=== PATIENT | female | born 1985 | race Asian ===

== ENCOUNTER 2018-08-26 05:28 | Inpatient (IN) | payer BC, OTHER, SELFPAY ==
[2018-08-26] MEDS ORDERED: Bicitra 30 ML UDCUP PO SCH (05:58)
[2018-08-26] MEDS ORDERED: CEFAZOLIN 2 GM in Premix Bag 1 BAG IVPB SCH (05:58)
[2018-08-26] MEDS ORDERED: Ondansetron PF 4 MG/2 ML Vial IVP PRN ×3 (05:58→08:42)
[2018-08-26] MEDS ORDERED: Promethazine HCl 25 MG/ML VIAL IM PRN ×2 (05:58→08:38)
[2018-08-26] MEDS ORDERED: Docusate 100 MG CAP PO PRN (05:58)
[2018-08-26 06:16] VITALS: BMI 40.7
[2018-08-26 06:26] LABS: Hemoglobin 12.6 g/dL (12.0-16.0); Mean Corpuscular HGB CONC 33.7 g/dL (32.0-36.0); Mean Corpuscular Hemoglobin 29.7 pg (27.0-31.0); Mean Corpuscular Volume 88.2 fL (78.0-98.0); Mean Platelet Volume 8.9 fL (7.4-10.4); Platelet Count 204 thou/uL (130-400); RBC Distribution Width 15.9 % (11.5-14.5); Red Blood Cell (RBC) Count 4.24 mill/uL (4.20-5.40); White Blood Cell (WBC) Count 5.2 thou/uL (4.8-10.8)
[2018-08-26] MEDS: Lactated Ringer's 1,000 ML IV SCH ×2 (06:28→07:06)
[2018-08-26] MEDS ORDERED: Morphine PF 1 MG/ML SYR ONE (06:53)
[2018-08-26] MEDS ORDERED: PHENYLEPHRINE-NS 100 MCG/ML 10 ML SYRINGE ONE ×2 (06:54→14:30)
[2018-08-26] MEDS ORDERED: Oxytocin 10 UNITS/ML VIAL ONE (06:54)
[2018-08-26] MEDS ORDERED: ePHEDrine/0.9% NaCl/PF SYRINGE 50 mg/10 ml ONE (06:54)
[2018-08-26 07:04] LABS: Syphilis Antibody Nonreactive (Nonreactive); Syphilis Antibody Index 0.02 S/CO (<1.00 Non-Reactive)
[2018-08-26 07:05] LABS: HBSAg Index 0.26 S/CO (0-0.99); Hep B Surf Ag Non-Reactive S/CO (NonReactive)
[2018-08-26] MEDS ORDERED: Ondansetron PF 4 MG/2 ML Vial ONE ×2 (08:09→14:30)
[2018-08-26] MEDS ORDERED: Midazolam HCl 2 mg/2 ml Vial ONE (08:19)
[2018-08-26] MEDS ORDERED: Eucerin (Mineral Oil/Petrolatum,White) 30 gm Jar TOP PRN (08:38)
[2018-08-26] MEDS ORDERED: Ketorolac Tromethamine 30 MG/ML VIAL IVP PRN (08:38)
[2018-08-26] MEDS ORDERED: Promethazine HCl 25 MG SUPP PR PRN (08:38)
[2018-08-26] MEDS ORDERED: diphenhydrAMINE 50 MG/ML VIAL IVP PRN (08:38)
[2018-08-26] MEDS ORDERED: Naloxone HCl 0.4 mg/ml Vial IV PRN (08:38)
[2018-08-26] MEDS ORDERED: Naloxone HCl 0.4 mg/ml Vial IVP PRN (08:38)
[2018-08-26] MEDS ORDERED: Meperidine HCl/PF 25 MG/ML VIAL IM PRN (08:42)
[2018-08-26] MEDS ORDERED: Zolpidem Tartrate 5 MG TAB PO PRN (08:42)
[2018-08-26] MEDS ORDERED: Bisacodyl 10 MG SUPP PR PRN (08:42)
[2018-08-26] MEDS ORDERED: HYDROcodone/Acetaminophen 5/325 mg Tablet PO PRN (08:42)
[2018-08-26] MEDS ORDERED: Acetaminophen 325 MG TAB PO PRN (08:42)
[2018-08-26] MEDS ORDERED: diphenhydrAMINE 25 MG CAP PO PRN (08:42)
[2018-08-26] MEDS ORDERED: Lanolin Ointment 7 GM TUBE TOP PRN (08:42)
[2018-08-26] MEDS ORDERED: Ketorolac Tromethamine 30 MG/ML VIAL ONE ×2 (08:42→14:30)
[2018-08-26] MEDS ORDERED: Adacel (T-DAP) 0.5 ML SYRINGE IM ONE (08:42)
[2018-08-26] MEDS ORDERED: Lactated Ringer's 1,000 ML IV SCH (08:45)
[2018-08-26] MEDS ORDERED: NS / Oxytocin 40 units/1000ml 1,000 ML IV SCH (08:45)
[2018-08-26] MEDS ORDERED: Communication Order-Pharmacy FS SCH (08:45)
[2018-08-26] MEDS ORDERED: IRON CARB GL PO SCH (09:00)
[2018-08-26] MEDS ORDERED: FOLIC PO SCH (09:00)
[2018-08-26] MEDS ORDERED: B12 PO SCH (09:00)
[2018-08-26] MEDS ORDERED: DOCUSATE PO SCH (09:00)
[2018-08-26] MEDS ORDERED: DHA PO SCH (09:00)
[2018-08-26] MEDS ORDERED: Prenatal Vitamin 1 TAB PO SCH (09:00)
[2018-08-26] MEDS ORDERED: [UNRECOGNIZED DRUG - OTHER] PO SCH (09:00)
[2018-08-26] MEDS ORDERED: [UNRECOGNIZED DRUG - OTHER] PO SCH (09:00)
[2018-08-26] MEDS ORDERED: DSS PO SCH (09:00)
[2018-08-26] MEDS: Docusate Calcium (SURFAK) 240 MG CAP PO SCH ×2 (12:13→22:15)
[2018-08-26] MEDS: Ferrous Sulfate 325 MG TAB PO SCH ×2 (12:13→22:18)
[2018-08-26] MEDS: metFORMIN XR 500 MG TAB PO SCH ×2 (12:14→22:19)
[2018-08-26] MEDS ORDERED: ePHEDrine 50 MG/ML VIAL ONE (14:30)
[2018-08-26] MEDS: Simethicone Chewable 80 MG TAB PO PRN (22:15)
[2018-08-26] MEDS: Ibuprofen 800 MG TAB PO SCH (22:18)
[2018-08-27] MEDS: HYDROcodone/Acetaminophen 5/325 mg Tablet PO PRN ×3 (04:10→21:14)
[2018-08-27] MEDS: Ibuprofen 800 MG TAB PO SCH ×3 (06:18→23:18)
[2018-08-27 07:58] LABS: Hemoglobin 11.4 g/dL (12.0-16.0); Mean Corpuscular HGB CONC 33.2 g/dL (32.0-36.0); Mean Corpuscular Hemoglobin 29.7 pg (27.0-31.0); Mean Corpuscular Volume 89.6 fL (78.0-98.0); Mean Platelet Volume 8.4 fL (7.4-10.4); Platelet Count 199 thou/uL (130-400); RBC Distribution Width 15.7 % (11.5-14.5); Red Blood Cell (RBC) Count 3.84 mill/uL (4.20-5.40); White Blood Cell (WBC) Count 9.1 thou/uL (4.8-10.8)
[2018-08-27] MEDS ORDERED: FERRALET PO SCH (09:00)
[2018-08-27] MEDS: Ferrous Sulfate 325 MG TAB PO SCH ×2 (09:04→23:27)
[2018-08-27] MEDS: Docusate Calcium (SURFAK) 240 MG CAP PO SCH ×2 (09:06→21:09)
[2018-08-27] MEDS: Prenatal Vitamin 1 TAB PO SCH (09:06)
[2018-08-27] MEDS: metFORMIN XR 500 MG TAB PO SCH ×2 (09:06→23:27)
[2018-08-27] MEDS: Simethicone Chewable 80 MG TAB PO PRN ×2 (14:24→21:09)
--- NOTE | 2018-08-27 16:40 | OP ---
DATE OF PROCEDURE: 08/26/2018 RESIDENT SURGEON: Deann Sarabia MD GOVERNMENT AFFAIRS RESEARCHER SURGEON: Sharlene Steen MD PREOPERATIVE DIAGNOSES: 1. Term intrauterine at 39 weeks. 2. Prior . POSTOPERATIVE DIAGNOSES: 1. Term intrauterine at 39 weeks. 2. Prior . PROCEDURE PERFORMED: Repeat low transverse section. ANESTHESIA: Spinal catheterization. FINDINGS: 1. Minimal scarring and adhesions. 2. Normal uterus, tubes, and ovaries. 3. Vigorous male , 8 pounds 2 ounces, Apgars 8 and 9. COMPLICATIONS: None. SPECIMENS REMOVED: Cord blood. BLOOD LOSS: Approximately 600 mL (QBL was 512 mL). DESCRIPTION OF PROCEDURE: After thorough consent and counseling, Mrs. Champion was taken to the operating room and adequate level of anesthesia was obtained via spinal catheterization. The patient was prepped and draped in usual sterile fashion for abdominal surgery. A Morris was placed in the bladder, which was draining clear urine. heart tones obtained in the OR prior to initiation of the surgery. Attention was then turned to performing the repeat low-transverse section. A Pfannenstiel incision was made and carried sharply to the fascia, which was also sharply incised. The midline was identified, and the rectus muscles were retracted laterally. The abdominal peritoneal cavity was entered with usual safeguard carried out. A retractor was placed, and a bladder flap was created on the vesicouterine peritoneum. A bladder blade was then placed. A low-transverse incision was made on the well-developed lower uterine segment. Upon entering the amniotic sac, a copious amount of clear amniotic fluid was visualized. The infant was vertex presentation in the occiput transverse position still high in the pelvis. Head was delivered. Baby was bulb suctioned on the abdomen. Shoulders and body were then delivered in an atraumatic fashion. The cord was doubly clamped and cut. The infant was handed to the pediatric team in attendance for the delivery. The was a vigorous viable male weighing 8 pounds 2 ounces with Apgars of 8 and 9 obtained at one and five minutes respectively. Cord blood was obtained. A self-containing retractor was then placed. Because of the size of the uterus and the patient's body habitus, we were unable to deliver the uterus exteriorly. Uterine cavity was cleared of clot and fluid. The low-transverse incision was closed with a running locking ligature of #1 chromic. A second imbricating layer was placed to facilitate hemostasis. Additional ligatures were placed for strength and hemostasis with 0 Vicryl suture in a [id number] manner. The vesicouterine peritoneum was reapproximated to the lower segment with a running ligature of 3-0 Monocryl. Uterus, fallopian tubes, and ovaries were inspected and noted to be normal. The retractor was removed. Lap, sponge, and needle counts were correct. Peritoneum was closed with 2-0 Vicryl. The rectus muscles were reapproximated with interrupted ligatures of both 2-0 Vicryl and #1 chromic suture. The fascia was then closed with 2 ligatures of 0 Vicryl suture tied in the midline. Good fascial integrity was appreciated. The incision was irrigated with copious amount of warm normal saline. The subcutaneous tissue was closed with interrupted ligatures of 2-0 plain. The skin was closed with a subcuticular stitch of 4-0 Monocryl and dressed with Dermabond. Lap, sponge, and needle counts were correct x3. Estimated blood loss during the surgical procedure was approximately 600 mL. The patient was taken to recovery room in good condition. Immediately following surgery, the patient and family were made aware of the surgical procedure and operative findings. Questions answered to their satisfaction. Baby was returned to mother in the recovery room and both doing well postoperatively. The patient and her were very appreciative of the care rendered here at [facility] this morning. The family requests circumcision of male infant. Job ID: [id number]
[2018-08-28] MEDS: Simethicone Chewable 80 MG TAB PO PRN (04:22)
[2018-08-28] MEDS: Ibuprofen 800 MG TAB PO SCH ×2 (06:09→15:10)
[2018-08-28] MEDS: Prenatal Vitamin 1 TAB PO SCH (09:16)
[2018-08-28] MEDS: metFORMIN XR 500 MG TAB PO SCH (09:16)
[2018-08-28] MEDS: Docusate Calcium (SURFAK) 240 MG CAP PO SCH (09:16)
[2018-08-28] MEDS: Ferrous Sulfate 325 MG TAB PO SCH (09:17)
[2018-08-28 10:57] VITALS: BP 136/78; TEMP 98.8
[2018-08-28] MEDS: HYDROcodone/Acetaminophen 5/325 mg Tablet PO PRN (15:09)
== END 2018-08-28 16:45 | disposition home or self-care (01) | DRG 788 ==
LOC: L&D 05:28 → 3SW 11:11
PROVIDERS: ADMIT Obstetrics & Gynecology; ATTEND Obstetrics & Gynecology
PROC: 10D00Z1 Extraction of Products of Conception, Low, Open Approach (ICD-10-PCS; principal; 2018-08-26)
DX: O34.211 Maternal care for low transverse scar from previous cesarean delivery (principal); O24.429 Gestational diabetes mellitus in childbirth, unspecified control; O99.02 Anemia complicating childbirth; D64.9 Anemia, unspecified; O99.214 Obesity complicating childbirth; E66.9 Obesity, unspecified; Z37.0 Single live birth; Z3A.39 39 weeks gestation of pregnancy
CPT/HCPCS: 36415; 36416; 51702; 85027; 86780; 86850; 86900; 86901; 87340; J1885; J2250; J2274; J2405; J2550; J2590; J3490

== ENCOUNTER 2018-08-30 21:33 | Emergency (ER) | payer OTHER, SELFPAY ==
[2018-08-30 22:27] LABS: #Eosinphils 0.1 thou/uL (0.0-0.7); #Lymphocytes 1.3 thou/uL (1.20-3.40); #Monocytes 0.4 thou/uL (0.11-0.59); #Neutrophils 3.5 thou/uL (1.40-6.50); %Basophils 0.1 % (0.0-1.0); %Eosinophils 1.9 % (0.0-10.0); %Lymphocytes 24.2 % (21.0-51.0); %Monocytes 7.2 % (0.0-10.0); %Neutrophils 66.6 % (42.0-75.0); Mean Corpuscular HGB CONC 33.3 g/dL (32.0-36.0); Mean Corpuscular Hemoglobin 29.6 pg (27.0-31.0); Mean Platelet Volume 7.4 fL (7.4-10.4); Platelet Count 298 thou/uL (130-400); Red Blood Cell (RBC) Count 3.38 mill/uL (4.20-5.40); White Blood Cell (WBC) Count 5.3 thou/uL (4.8-10.8)
[2018-08-30 22:59] LABS: ALT (SGPT) 16 U/L (8-55); AST (SGOT) 13 U/L (5-34); Albumin 3.3 g/dL (3.5-5.0); Alkaline Phosphatase 76 U/L (40-150); Anion Gap 13 mmol/L (10-20); BUN (Urea Nitrogen) 11 mg/dL (7.0-18.7); Bilirubin, Total 0.2 mg/dL (0.2-1.2); Calc. Creatinine Clearance 0 mL/min (70-130); Calcium 9.2 mg/dL (7.8-10.44); Carbon Dioxide 25 mmol/L (22-29); Chloride 106 mmol/L (98-107); Estimated GFR-MDRD Greater than 90; Globulin 2.9 g/dL (2.4-3.5); Glucose 97 mg/dL (70-105); Potassium 3.9 mmol/L (3.5-5.1); Protein, Total 6.2 g/dL (6.0-8.3); Sodium 140 mmol/L (136-145)
[2018-08-30 23:25] LABS: Blood, Urine Large (Negative); Glucose, Urine (Dipstick) Negative (Negative); Protein, Urine (Dipstick) 100 mg/dL (Neg-Trace); Specific Gravity, Urine 1.025 (1.005-1.030)
[2018-08-30 23:26] LABS: Clarity Cloudy (Clear)
[2018-08-30 23:28] LABS: Bilirubin Unable to Interpret (Negative); Leukocyte Unable to Interpret (Negative); Nitrite Unable to Interpret (Negative); RBC/HPF GREATER THAN 50-TNTC HPF (0-3); WBC/HPF 21-50 HPF (0-3)
[2018-08-30 23:29] LABS: Bacteria/HPF 1+ HPF (None Seen); Hyaline Casts/LPF NONE SEEN LPF (0-3 Hyaline); Other Microscopic Description Less than 2 mL rec'd; Urobilinogen UNABLE TO INTERPRET mg/dL (0.2-1.0)
--- NOTE | 2018-08-31 08:23 | ULT ---
PRELIMINARY REPORT/[facility]/EMERGENTY AFTER-HOURS PROCEDURE US Duplex Right Lower Extremity Veins, Limited EXAM DATE/TIME: 08/30/2018 11:47 PM CLINICAL HISTORY: 32 years old, female; Pain and signs and symptoms; Edema, localized; Lower extremity, right; Leg, low er; Prior surgery; Surgery date: 3-7 days post-operative; Surgery type: ; Patient HX: Rle pa in/edema x 2 days TECHNIQUE: Real-time Duplex ultrasound of the Right Lower Extremity with 2-D spangler scale, color Doppler flow and spectral waveform analysis. Limited exam was focused on the right lower extremity veins. COMPARISON: No relevant prior studies available. FINDINGS: Evaluated veins include the right common femoral, profunda femoral, proximal/mid/distal superficial f emoral, popliteal, posterior tibial, and greater saphenous veins. No visible clot in the included veins. The included veins appear normally compressible. Duplex Doppler evaluation demonstrates flow in the evaluated veins. IMPRESSION: No evidence of acute right lower extremity DVT. Thank you for allowing us to participate in the care of your patient. Dictated and Authenticated by: Luis Carlos Dunbar MD 08/31/2018 1:29 AM Central Time ([place] & [place]) FINAL REPORT EMERGENT AFTER HOURS RIGHT LOWER EXTREMITY VENOUS ULTRASOUND: FINDINGS/IMPRESSION: I agree with the findings and impression given in the preliminary report per the [facility] physician. No evidence of right lower extremity DVT.
== END 2018-08-31 01:42 | disposition home or self-care (01) ==
LOC: ERS 21:33
DX: O99.89 Other specified diseases and conditions complicating pregnancy, childbirth and the puerperium (principal); M79.89 Other specified soft tissue disorders
CPT/HCPCS: 36415; 80053; 81003; 81015; 84484; 85025; 85379